=== PATIENT | male | born 1980 | race Caucasian/White ===

== ENCOUNTER 2019-02-22 23:58 | Emergency (ER) | payer OTHER, SELFPAY ==
[2019-02-23 00:01] VITALS: BP 146/100; PULSE 89; RESP 18; TEMP 36.5; O2SAT 97
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
[2019-02-23 00:11] VITALS: BP 146/100; PULSE 89; RESP 18; O2SAT 97
== END 2019-02-23 00:20 | disposition home or self-care (01) ==
LOC: ER 02-23 00:23
PROVIDERS: Emergency Provider Emergency Medicine
DX: S83.92XA Sprain of unspecified site of left knee, initial encounter (principal); X50.9XXA Other and unspecified overexertion or strenuous movements or postures, initial encounter; W17.2XXA Fall into hole, initial encounter; Y99.0 Civilian activity done for income or pay
CPT/HCPCS: 29505; 99283; L1810

== ENCOUNTER 2025-03-11 11:03 | Observation (INO) | payer OTHER, SELFPAY ==
[2025-03-11] VITALS (11 sets, daily range): BP systolic 124–144; BP diastolic 69–99; PULSE 60–79; RESP 16–20; TEMP 36.2–36.7; O2SAT 96–98; BMI 27.9
--- NOTE | 2025-03-11 11:15 | DI.CT_ITS ---
Exam(s) CT ABDOMEN PELVIS W EXAM: CT ABDOMEN PELVIS W CLINICAL HISTORY: right sided abdominal pain. TECHNIQUE: Imaging Protocol: Axial computed tomography images with coronal and sagittal reformatted images were created and reviewed CONTRAST MATERIAL: Intravenous: Omnipaque-350 75cc Oral: None COMPARISON: No exams were available for comparison FINDINGS: VISUALIZED LUNG BASES: No nodules nor pleural effusions evident. ABDOMEN: There is no ascites. LIVER: Liver is diffusely hypodense implying steatosis. There are no focal hepatic lesions evident. No dilated intrahepatic ducts. GALLBLADDER/BILIARY: No obvious gallbladder pathology. CBD is not dilated. PANCREAS: No evidence of pancreatic mass nor dilatation of the pancreatic duct. SPLEEN: Spleen is not enlarged. No obvious intrasplenic lesions. Splenic and portal veins are patent. ADRENALS: There are no significant adrenal masses. KIDNEYS:Left kidney unremarkable. There is a small nonobstructive 3 millimeter calculus in the midpole level of the right kidney. There is also benign exophytic cyst off the lateral cortex of the right kidney which measures 1 point 5 cm and does not require further workup. No solid renal lesions. No hydronephrosis. No hydroureter.. URINARY BLADDER: Somewhat distended, measuring 13.8 cm x 7.5 cm x 8.6 cm. No abnormal focal wall thickening. No intraluminal radiopaque calculi nor clots within the bladder lumen. ABDOMINAL AORTA: Abdominal aorta is not enlarged. LYMPH NODES:There is no retroperitoneal nor paraaortic adenopathy. ABDOMINAL WALL: There is a containing right para umbilical anterior abdominal hernia. There is some mild streaking of the fat within the hernia sac but no bowel loops therein and no evidence of bowel obstruction. GI: There is no evidence of bowel obstruction, free air, nor abscess. PELVIS: GI: The appendix diameter measures up to 8.5 mm. There is no appendicolith. No obvious surrounding streaking. There is no significant sigmoid diverticular disease. Sigmoid is noted to be redundant.. LYMPH NODES: There is no intrapelvic nor inguinal adenopathy. REPRODUCTIVE: Prostate size upper normal. Seminal vesicles unremarkable. Yes technically is absent. Right testicle exhibits compensatory enlargement. OSSEOUS: No fractures and no significant osseous lesions. IMPRESSION: 1. There is a small solitary nonobstructive 3 mm calculus in the right kidney. No calculi in the left kidney. No hydronephrosis on either side. 2. Diameter of the distal appendix is minimally prominent. The appendix is also slightly straighter than typical. There is no air with in the appendiceal lumen. There are no intraluminal appendicoliths. 3. Moderately distended urinary bladder. Prostate size upper normal. Preliminary virtual Radiology report was reviewed. Final report called by myself to ER physician 03/11/2025 at 3:55 p.m. RADIATION DOSE DELIVERED: 489.32mGy.cm Total DLP DATA REPOSITORY: All CT scans at this facility are submitted to the National Radiology Data Registry (NRDR) Dose Index Registry (DIR) with the [employer] (ACR). RADIATION OPTIMIZATION: All CT scans at this facility use at least one of these dose optimization techniques: automated exposure control; mA and/or kV adjustment per patient size (includes targeted exams where dose is matched to clinical indication); or iterative reconstruction.
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
[2025-03-11] MEDS: Omnipaque 350 MG/ML 100 ML BTL IJ (11:37)
[2025-03-11 11:40] LABS: Abs Immature Grans 0.01 10^3/uL (0.0-0.06); HCT 44.7 % (40.0-50.0); HGB 15.4 g/dL (13.5-17.5); Immature Grans % 0.1 %; MCH 30.3 pg (27.0-33.0); MCHC 34.5 % (32.0-36.0); MCV 88 fL (80-95); MPV 9.1 fL (8.0-11.0); Platelet Count 273 10^3/uL (130-400); RBC 5.09 10^6/uL (4.36-5.78); RDW 11.9 % (11.8-14.1); RDW-SD 38.6 fL; WBC 7.76 10^3/uL (4.4-10.8)
[2025-03-11] MEDS: Normal Saline - Diluent 50 ML VIAL IJ (11:46)
[2025-03-11] MEDS: Normal Saline Flush 10 ML SYR IVP (11:47)
[2025-03-11 11:58] LABS: ALT 45 U/L (16-63); AST 22 U/L (15-37); Albumin 4.3 g/dL (3.4-5.0); Alkaline Phosphatase 80 U/L (46-116); Anion Gap 7.4 mmol/L (3-11); BUN 12 mg/dL (7-18); Bilirubin, Total 1.1 mg/dL (0.2-1.0); CO2 29.6 mmol/L (21.0-32.0); Calcium 9.2 mg/dL (8.5-10.1); Chloride 103 mmol/L (98-107); Estimated GFR 69.90 (mL/min/1.73m2); Glucose 94 mg/dL (74-106); Lipase 58 U/L (<78); Magnesium 2.1 mg/dL (1.8-2.4); Potassium 4.0 mmol/L (3.5-5.1); Sodium 140 mmol/L (136-145); Total Protein 7.7 g/dL (6.4-8.2)
--- NOTE | 2025-03-11 12:47 | DI.VRAD_ITS ---
Addendum created by Carlee Castillo MD on 03/11/2025 12:48:46 PM EDT: THIS REPORT CONTAINS FINDINGS THAT MAY BE CRITICAL TO PATIENT CARE. The findings were verbally communicated via telephone conference with Pedro Pablo Herndon at 12:48 PM EDT on 03/11/2025. The findings were acknowledged and understood. Initial report created on 03/11/2025 12:46:34 PM EDT: PROCEDURE INFORMATION: Exam: CT Abdomen And Pelvis With Contrast Exam date and time: 03/11/2025 11:39 AM Age: 44 years old Clinical indication: Abdominal pain; Localized; Right lower quadrant (rlq); HX - testicular hernia as infant - per patient TECHNIQUE: Imaging protocol: Computed tomography of the abdomen and pelvis with contrast. Contrast material: OMNIPAQUE 350; Contrast volume: 75 ml; Contrast route: INTRAVENOUS (IV); COMPARISON: No relevant prior studies available. FINDINGS: Lungs: No significant consolidation is identified at the lung bases. Liver: There is fatty infiltration of the liver. No focal intrahepatic abnormalities identified. Gallbladder and biliary ducts: No calcified gallstones. No biliary ductal dilatation. Pancreas: Pancreas is unremarkable Spleen: Spleen is mildly enlarged measuring approximately 13.8 cm in its maximum diameter on axial image 26. No intra splenic abnormality is identified. Adrenal glands: Adrenals are unremarkable Kidneys and ureters: There is a small exophytic cyst projecting laterally from the lower pole of the right kidney. This measures approximately 16 mm in maximum diameter. There is some nonspecific stranding noted in the perinephric fat bilaterally. There is no renal cortical mass. Stomach and bowel: No evidence of bowel obstruction. No mass or pneumatosis. Appendix: The appendix is enlarged measuring approximately 10 mm in maximum diameter particularly distally. There is mild wall thickening particularly at the tip. There may be very subtle stranding in the perinephric fat. Findings are suspicious for early appendicitis. Intraperitoneal space: No free fluid focal collections or free intraperitoneal air is identified. No significant ascites focal collections or free intraperitoneal air. Vasculature: Aorta is nonaneurysmal. Lymph nodes: There is no significant adenopathy. Urinary bladder: The bladder is unremarkable Reproductive: Seminal vesicles, prostate gland are unremarkable. Left testicle appears absent. Bones/joints: There is no acute bony abnormality identified. Soft tissues: Fat containing umbilical hernia. Subcutaneous soft tissues are otherwise unremarkable IMPRESSION: 1. The appendix is mildly enlarged, 10 mm in diameter with wall thickening particularly at the tip. Findings are suspicious for early appendicitis. Clinical correlation recommended. 2. No significant ascites, focal collections or free intraperitoneal air. 3. Fatty liver 4. Spleen is mildly enlarged Dictated and Authenticated by: Carlee Castillo MD. Orderin Yanick Chamorro MD
[2025-03-11] MEDS: Normal Saline 1,000 ML 125 ML IV (13:13)
[2025-03-11] MEDS: PIPERACILLIN/TAZO 4.5 GM in Normal Saline 100 ML IVPB (13:13)
--- NOTE | 2025-03-11 13:32 | W.ANESPRE ---
General Info Date of Service Date Performed: 03/11/25 Height: 5 ft 10 in Weight: 88.451 kg Body Mass Index (BMI): 27.9 Meds Allergies and Home Medications Allergies Allergy/AdvReac Type Severity Reaction Status Date / Time diphenhydramine (From AdvReac Intermediate Other (See Verified 03/11/25 11:08 Benadryl) Comment) Home Medication ?Medication ?Instructions ?Recorded cetirizine 10 mg tablet (All Day 10 mg PO DAILY 03/11/25 Allergy (cetirizine)) lisinopril 10 mg tablet 10 mg PO BID 03/11/25 Current Visit Medications: Current Medications Generic Name Dose Route Start Last Admin Trade Name Freq PRN Reason Stop Dose Admin Sodium Chloride 1,000 mls @ 125 mls/hr 03/11/25 13:00 03/11/25 13:13 Saline 1000ml Bag IV 125 mls/hr INFUSION DOMENICA Administration IV Miscellaneous Supplies 1 each 03/11/25 11:15 Iv Access IV DIRECTED DOMENICA Iohexol 100 ml 03/11/25 11:45 03/11/25 11:37 Omnipaque 350 Mg/Ml 100 Ml Btl IJ 04/10/25 23:59 100 ml DIRECTED DOMENICA Administration Sodium Chloride 0 ml 03/11/25 11:11 Normal Saline Flush 10 Ml Syr IVP PRN PRN Sodium Chloride 0 ml 03/11/25 20:00 Normal Saline Flush 10 Ml Syr IVP BID DOMENICA Sodium Chloride 0 ml 03/11/25 11:11 Normal Saline 10 Ml Vial IJ DIRECTED PRN Sodium Chloride 0 ml 03/11/25 11:34 03/11/25 11:47 Normal Saline Flush 10 Ml Syr IVP 10 ml PRN PRN Administration Sodium Chloride 50 ml 03/11/25 11:45 03/11/25 11:46 Normal Saline - Diluent 50 Ml Vial IJ 50 ml DIRECTED DOMENICA Administration PFSH Active Problems Active Problems: Problem Status Onset Code Appendicitis Acute K37 Tobacco Smoking/Tobacco Use Status: Never Alcohol Alcohol Intake: current Alcohol intake frequency: 0-2 drinks per day Substance Use Substance use: Never Substance use type: does not use Vital Signs and Lab Results Vital Signs Most Recent Vital Signs in EMR: Most Recent Vital Signs Temp Pulse Resp BP Pulse Ox 36.7 C 70 16 135/92 H 97 03/11/25 11:11 03/11/25 12:21 03/11/25 12:21 03/11/25 12:21 03/11/25 12:21 Lab Results 03/11/25 11:21 03/11/25 11:21 Complete Blood Count: WBC, (4.4-10.8) 7.76 10^3/uL Today, 11:21 RBC, (4.36-5.78) 5.09 10^6/uL Today, 11:21 Hgb, (13.5-17.5) 15.4 g/dL Today, 11:21 Hct, (40.0-50.0) 44.7 % Today, 11:21 Plt Count, (130-400) 273 10^3/uL Today, 11:21 Complete Metabolic Panel: Sodium, (136-145) 140 mmol/L Today, 11:21 Potassium, (3.5-5.1) 4.0 mmol/L Today, 11:21 Chloride, (98-107) 103 mmol/L Today, 11:21 Carbon Dioxide, (21.0-32.0) 29.6 mmol/L Today, 11:21 BUN, (7-18) 12 mg/dL Today, 11:21 Creatinine, (0.70-1.30) 1.3 mg/dL Today, 11:21 Est GFR (CKD-EPI 2020), (mL/min/1.73m2) 69.90 Today, 11:21 Magnesium, (1.8-2.4) 2.1 mg/dL Today, 11:21 Calcium, (8.5-10.1) 9.2 mg/dL Today, 11:21 Albumin, (3.4-5.0) 4.3 g/dL Today, 11:21 Glucose, (74-106) 94 mg/dL Today, 11:21 Liver Function Panel: ALT, (16-63) 45 U/L Today, 11:21 AST, (15-37) 22 U/L Today, 11:21 Pancreas Panel: Lipase, (<78) 58 U/L Today, 11:21 Anesthesia Assessment and Plan Anesthesia History Personal History: No History of Anesthesia Complications Family History: No Family History of Anesthesia Complications Exercise Tolerance Exercise Tolerance: Metabolic Equivalents>4 Pertinent Negatives Pertinent Negatives: No Symptoms of GERD Cardiac & Pulmonary Exam Cardiac Exam: Normal S1/S2 Heart Sounds Pulmonary Exam: Clear Bilateral Breath Sounds Implantable Cardiac Device Does patient have a Pacemaker or an ICD?: No Airway Exam Known Difficult Airway: No Mallampati Class: 2 Mouth Opening: Normal (> 3cm) Thyromental Distance: Greater than 3 cm Neck Range of Motion: Full ROM Neck Circumference: Normal Teeth Condition: Normal Dentition ASA Classification ASA Score: ASA 2 Emergency Case?: Yes NPO Status NPO Status: NPO Clears >2 hours, Solids >8 hours Anesthesia Plan Resuscitation Status: Full Code Anesthesia Technique: General Anesthesia Airway Planned: Endotracheal Tube Monitors Used: Standard Monitors and SedLine
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
--- NOTE | 2025-03-11 14:51 | W.PM.HP.N ---
Date of service: 03/11/25 Time of Service: 14:51 Assessment and Plan Assessment and plan (1) Appendicitis: Status: Acute Assessment and plan: Acute appendicitis, appendectomy indicated. Discussed lap appendectomy risks, benefits, alternatives and expectations including risk of pain, bleeding, infection, damage to nearby structures and the need for more procedures. Discussed we may find perforated appendicitis in which case he will need to stay as an inpt for antibiotics. If not perforated and meets discharge criteria I plan to send him home today. Rx for norco sent to pharmacy for spouse to obtain in anticipation of discharge home today. pt asked good questions and verbalized understanding. Case scheduled in OR, a bumping emergency has occurred to he will be done next. History of Present Illness History of Present Illness Chief Complaint: appendicitis Narrative: 44yo M with acute appendicitis. he developed severe RLQ pain today and the pain worsened and increased. lost appetite and had nausea. The pain was severe and nothing relieved it so he came to the ed. In er a CT was done and shows acute appendicitis without stigmata of perforation. Review of Systems All systems reviewed & are unremarkable except as noted in HPI and below PFSH All Active Problems (Updated 03/11/25 @ 14:55 by Ruma Parmar MD) Appendicitis (Acute) Social History Smoking/Tobacco Use Status: Never Smoking risk assessment performed?: Yes Alcohol Intake: current Alcohol Intake frequency: 0-2 drinks per day Drug use: Never Substance use type: does not use Housing: house Do you feel safe at home: Yes Do you feel safe in your relationship?: Yes Meds Allergies and Home Medications Allergies Allergy/AdvReac Type Severity Reaction Status Date / Time diphenhydramine (From AdvReac Intermediate Other (See Verified 03/11/25 11:08 Benadryl) Comment) Home Medications ?Medication ?Instructions ?Recorded ?Confirmed ?Type cetirizine 10 mg tablet (All Day 10 mg PO DAILY 03/11/25 03/11/25 History Allergy (cetirizine)) hydrocodone 5 mg-acetaminophen 325 1 tab PO Q6H PRN pain #10 tabs 03/11/25 Rx mg tablet hydrocodone 5 mg-acetaminophen 325 1 tab PO Q6H PRN pain #10 tabs 03/11/25 Rx mg tablet lisinopril 10 mg tablet 10 mg PO BID 03/11/25 03/11/25 History Exam Narrative Exam Narrative: awake, NAD eomi, MMM midline trachea, neck is symmetric PULM: normal resp effort, equal chest rise with respiration, no wheezing audible CARDIAC: normal PMI, no jvd, regular rate, normal perfusion abdomen is nondistended. TTP RLQ extremities are without deformity, normal movement of all four extremities speech is clear and coherent mood and affect are congruent, no focal neurological deficits skin without rash Results Imaging Abdomen CT scan report/results: report reviewed and image reviewed Labs 03/11/25 11:21 03/11/25 11:21 Labs: Laboratory Results - last 24 hr 03/11/25 11:21 WBC 7.76 RBC 5.09 Hgb 15.4 Hct 44.7 MCV 88 MCH 30.3 MCHC 34.5 RDW 11.9 Plt Count 273 MPV 9.1 Immature Gran % 0.1 Neutrophils % 65.5 Lymphocytes % 24.0 Monocytes % 6.3 Eosinophils % 3.7 Basophils % 0.4 Nucleated RBC % 0.0 Absolute Neutrophils 5.08 Absolute Lymphocytes 1.86 Absolute Monocytes 0.49 Absolute Eosinophils 0.29 Absolute Basophils 0.03 Sodium 140 Potassium 4.0 Chloride 103 Carbon Dioxide 29.6 Anion Gap 7.4 BUN 12 Creatinine 1.3 Est GFR (CKD-EPI 2020) 69.90 Glucose 94 Calcium 9.2 Magnesium 2.1 Total Bilirubin 1.1 H AST 22 ALT 45 Alkaline Phosphatase 80 Total Protein 7.7 Albumin 4.3 Lipase 58 Last Vital Signs Temp 97.9 F 03/11/25 14:36 Pulse 70 03/11/25 14:36 Resp 18 03/11/25 14:36 BP 130/93 H 03/11/25 14:36 Pulse Ox 97 03/11/25 14:36 PAWSS Have you Been Recently Intoxicated or Drunk Within the Last 30 days?: No Have you Ever Experienced Previous Episodes of Alcohol Withdrawal?: No Have you ever Experienced Withdrawal Seizures?: No Have you ever Experienced Delirium Tremens(DT)s?: No Have you ever undergone Alcohol Rehabilitation Treatment (i.e, inpt ot outpatient treatment programs)?: No Have you ever Experienced Blackouts?: No Have you ever Combined Alcohol with other Downers within the last 90 days?: No Have you ever Combined Alcohol with any other Substance of Abuse during the last 90 days?: No Result: 0 Time Spent Time spent with Patient: <40 minutes Time was spent: preparing to see the patient(eg.review tests), ordering medications,tests, procedures, referring, communicating with other health rn care transition, indepentently interpreting results and counseling the patient
[2025-03-11] MEDS: Lactated Ringers 1,000 ML 75 ML IV ×2 (15:40→18:32)
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
[2025-03-11] MEDS: Bupivacaine 0.5% Pres-Free W/EPI 30 ML VIAL (19:12)
--- NOTE | 2025-03-11 19:22 | APP_PTH ---
PATIENT: Hayden Rae LOC: U#:[id number] AGE/SX: 44/M ROOM: [id number] RE03/11/[address]: Ruma Parmar MD : 1980 BED: A DIS: 03/11/2025 SPEC #: [id number] RECD: 03/13/25 12:12 STATUS: JENNIFER REQ #: [id number] RUSLAN: 03/11/25 19:[address]: Ruma Parmar DEPT: Surgical Specimen RECD BY: Ana Leyva ENTERED: 03/13/25 12:12 SP TYPE: Appendix OTHR DR: No Local Tissues: 1 - APPENDIX NOT INCIDENTAL Procedures: GROSS AND MICRO LEVEL 3 Comments: [id number]
--- NOTE | 2025-03-11 19:51 | W.PM.OP ---
Operative Note Operative Note PRE-OP DIAGNOSIS: acute appendicitis POST-OP DIAGNOSIS: same (nonperforated appendicitis) PROCEDURE: laparoscopic appendectomy SURGEON: Ruma Parmar BAKER HEAD: Josef Alvarado ANESTHESIA TYPE: Local By Surgeon and General LMA/ETT Refer to Anesthesia Record ESTIMATED BLOOD LOSS: 10 PATHOLOGY: other (appendix) COMPLICATIONS: None Procedure Description: Preoperative Diagnosis: Acute appendicitis Postoperative Diagnosis: Acute appendicitis Procedure: Laparoscopic appendectomy Surgeon: Ruma Parmar MD Regional Clinical Research Associate: CHAO Davis EBL: 10mL Anesthesia: GETA + local Specimen: Appendix Complications: None Procedure Description: This is a 44-year-old patient who was evaluated in the emergency department for abdominal pain. They had a CAT scan showing acute appendicitis. Appendectomy was indicated. We discussed laparoscopic appendectomy procedure at length, including a discussion about the risks, the benefits, the alternatives, and the expectations. Informed consent was obtained and the patient was taken to the operating room. The patient was placed supine on the operating table. SCDs were placed and all pressure points were padded appropriately. General anesthesia was induced. The abdomen was clipped, prepped, and draped in the usual sterile fashion. Timeout was performed. Local anesthetic was infiltrated into the skin and subcutaneous tissues at the planned incision sites. An infraumbilical incision was made with a scalpel. The umbilical stalk was grasped and elevated and the fascia cleared with cautery. An incision was made in the fascia and a Yanni clamp was used to enter the peritoneum. A finger sweep confirmed no structures against the abdominal wall. A Escobar trocar was introduced and the abdomen was insufflated to 15 mmHg. Initial laparoscopy confirmed no injury to the intra-abdominal structures. Two additional 5 mm ports were placed under direct visualization, 1 in the lower midline and 1 in the left lower abdomen. The patient was placed in Trendelenburg position and rotated toward the left. The cecum was identified and followed to the location of the appendix. The appendix was dilated and abnormally thickened. There was evidence of fat change and inflammation consistent with appendicitis. The appendix was grasped and elevated. A [place] dissector was used to dissected the base of the appendix from the cecum and fat. A bowel load stapler was used to transect the appendix at the base against the cecum. Next the mesoappendix was freed and cleared and a vascular load stapler was used to transect the mesoappendix. The appendix was placed into an Endo Catch bag. Hemostasis was assured at the staple lines, hemoclips were required. The pelvis and right lower quadrant were suctioned clean. The appendectomy site was examined for hemostasis and it was confirmed. The appendix was removed through the umbilical site. The abdomen was desufflated. The 5mm ports were removed. The umbilical fascia was closed with an 0 Vicryl stitch in a [id number] fashion. The remainder of the local anesthetic was infiltrated at the incision sites. The skin was washed and dried. The skin at all 3 sites was closed with 4-0 Monocryl simple interrupted subcuticular sutures. All sponge and instrument counts were correct at the end of the case. The patient tolerated the procedure well. The patient extubated in the operating room and transferred to the recovery room in stable condition. No complications. Date of Procedure: 03/11/25
--- NOTE | 2025-03-11 20:48 | W.ANESPOSTOP ---
Postoperative Evaluation Date, Time and Location Date Performed: 03/11/25 Time Performed: 20:48 Patient Location: Med/Surg Vital Signs Most Recent Imported Vital Signs: Most Recent Vital Signs Temp Pulse Resp BP Pulse Ox 36.2 C L 64 20 144/73 H 96 03/11/25 20:25 03/11/25 20:25 03/11/25 20:25 03/11/25 20:25 03/11/25 20:25 Pain Score Most Recent Pain Score: Most Recent Pain Score Pain Level 3 03/11/25 17:32 Assessment Mental Status: Awake (Alert & Oriented to Patient Baseline) Airway and Respiratory Function: Patent airway with normal (patient baseline) respiratory exam Cardiovascular Function: Hemodynamically Stable Hydration Status: Adequately Hydrated Nausea & Vomiting: No Nausea or Vomiting Pain: Pain is tolerable per patient Peripheral Nerve Block: Patient did not receive a nerve block
--- NOTE | 2025-03-11 21:34 | PGE_ITS ---
Date of Service Date of service: 03/11/25 Time of Service: 19:30 Assessment and Plan Assessment and plan (1) Appendicitis: Status: Acute Assessment and plan: WORK NOTE: Please excuse Hayden Rae from work duties as he had emergency surgery on 03/11/25. He will not be able to lift, push or pull more than 20lb for 4 weeks from todays date. After 4 weeks, he may return to regular duty without restriction. Please call my office if you have any questions. Sincerely, Dr. Ruma Parmar [facility] PAWSS Have you Been Recently Intoxicated or Drunk Within the Last 30 days?: No Have you Ever Experienced Previous Episodes of Alcohol Withdrawal?: No Have you ever Experienced Withdrawal Seizures?: No Have you ever Experienced Delirium Tremens(DT)s?: No Have you ever undergone Alcohol Rehabilitation Treatment (i.e, inpt ot outpatient treatment programs)?: No Have you ever Experienced Blackouts?: No Have you ever Combined Alcohol with other Downers within the last 90 days?: No Have you ever Combined Alcohol with any other Substance of Abuse during the last 90 days?: No Result: 0 Time Spent with Patient Time Spent with Patient: <25 minutes Time was spent: care coordination
== END 2025-03-11 21:47 | disposition home or self-care (01) ==
LOC: ER 12:54 → SUR 13:56 → MS 14:59
PROVIDERS: Admitting Provider Surgery; Emergency Provider Emergency Medicine; Visit Provider Surgery
PROC: 0DTJ4ZZ Resection of Appendix, Percutaneous Endoscopic Approach (ICD-10-PCS; CPT 44970; principal; 2025-03-11 13:35)
DX: K35.80 Unspecified acute appendicitis (principal)
CPT/HCPCS: 44970; 36415; 80053; 83690; 96361; 96365; 99285; 74177; 83735; 85025; 88304; J0131; J1100; J1885; J2003; J2405; J2543; J2704; J3010; J3490